=== PATIENT | male | born 1940 | race Caucasian/White ===

== ENCOUNTER → 2021-02-25 | Outpatient (CLI) | payer MEDICARE ==
[~2021-02-25] MED LIST: ASPIRIN CHEWABL81 MG PO; DECADRON6 MG PO; DIOVAN320 MG PO; FLOMAX0.4 MG PO; FLONASE 0.05% N16 GM; GLUCOPHAGE1000 MG PO; JANUVIA100 MG PO; LASIX20 MG PO; LIPITOR40 MG PO; PRESERVISION A1 EAC2 PO; TYLENOL EXTRA500 MG PO; UROCIT-K5 MEQ PO; VENTOLIN HFA 66.7 GM INH
== END ==
LOC: KOH-I 15:00
DX: N50.89 Other specified disorders of the male genital organs (principal)
CPT/HCPCS: 76870

== ENCOUNTER 2021-03-25 09:43 | Inpatient (IN) | payer OTHER ==
[~2021-03-25] VITALS: Ht 180.3 cm; Wt 111.1 kg
[~2021-03-25 09:43] MED LIST changes: -DECADRON6 MG PO; -DIOVAN320 MG PO; -FLOMAX0.4 MG PO; -FLONASE 0.05% N16 GM; -JANUVIA100 MG PO; -LIPITOR40 MG PO; -PRESERVISION A1 EAC2 PO; -TYLENOL EXTRA500 MG PO; -UROCIT-K5 MEQ PO; -VENTOLIN HFA 66.7 GM INH
[2021-03-25 10:13] LABS: HEMOGLOBIN 11.5 gm/dl (14.0-17.5); RED BLOOD COUNT 3.55 M/UL (4.20-5.50); WHITE BLOOD COUNT 7.3 K/UL (4.5-11.0)
[2021-03-25 10:37] LABS: BUN/CREATININE RATIO 25 (0-10)
[2021-03-25] MEDS ORDERED: JANUVIA100 MG PO (14:51)
[2021-03-25] MEDS ORDERED: TYLENOL EXTRA500 MG PO (15:12)
[2021-03-25] MEDS ORDERED: PRESERVISION A1 EAC2 PO (15:12)
[2021-03-25] MEDS ORDERED: FLOMAX0.4 MG PO (22:10)
[2021-03-25] MEDS ORDERED: LIPITOR40 MG PO (22:10)
[2021-03-25] MEDS ORDERED: UROCIT-K5 MEQ PO (22:12)
[2021-03-25] MEDS ORDERED: FLONASE 0.05% N16 GM (22:14)
[2021-03-25] MEDS ORDERED: DIOVAN320 MG PO (22:14)
[2021-03-26 04:31] LABS: HEMOGLOBIN 10.6 gm/dl (14.0-17.5); RED BLOOD COUNT 3.33 M/UL (4.20-5.50); WHITE BLOOD COUNT 5.7 K/UL (4.5-11.0)
[2021-03-27 04:36] LABS: HEMOGLOBIN 10.6 gm/dl (14.0-17.5); RED BLOOD COUNT 3.37 M/UL (4.20-5.50)
[2021-03-27 04:37] LABS: WHITE BLOOD COUNT 7.4 K/UL (4.5-11.0)
[2021-03-28 05:56] LABS: HEMOGLOBIN 11.1 gm/dl (14.0-17.5); RED BLOOD COUNT 3.5 M/UL (4.20-5.50); WHITE BLOOD COUNT 6.2 K/UL (4.5-11.0)
[2021-03-28 06:31] LABS: BUN/CREATININE RATIO 33 (0-10)
[2021-03-28] MEDS ORDERED: DECADRON6 MG PO (09:38)
[2021-03-28] MEDS ORDERED: VENTOLIN HFA 66.7 GM INH (09:38)
== END 2021-03-28 14:03 | disposition home or self-care (01) | DRG 177 ==
LOC: ER1 09:43 → CDU 14:24 → MED SURG 4 14:24
PROVIDERS: Physician Assistant Medical; Student in an Organized Health Care Education/Training Program; ADMIT Internal Medicine Infectious Disease
PROC: 8E0ZXY6 Isolation (ICD-10-PCS; principal; 2021-03-25)
PROC: 3E0333Z Introduction of Anti-inflammatory into Peripheral Vein, Percutaneous Approach (ICD-10-PCS; 2021-03-25)
DX: U07.1 COVID-19 (principal); J12.82 Pneumonia due to coronavirus disease 2019; J96.01 Acute respiratory failure with hypoxia; N17.0 Acute kidney failure with tubular necrosis; N18.30 Chronic kidney disease, stage 3 unspecified; I12.9 Hypertensive chronic kidney disease with stage 1 through stage 4 chronic kidney disease, or unspecified chronic kidney disease; E11.65 Type 2 diabetes mellitus with hyperglycemia; E11.22 Type 2 diabetes mellitus with diabetic chronic kidney disease; R68.0 Hypothermia, not associated with low environmental temperature; I45.10 Unspecified right bundle-branch block; T38.0X5A Adverse effect of glucocorticoids and synthetic analogues, initial encounter; Z79.4 Long term (current) use of insulin; Z83.3 Family history of diabetes mellitus
CPT/HCPCS: 36415; 36600; 71045; 80048; 80053; 80202; 82550; 82553; 82803; 82962; 83605; 83690; 83735; 83874; 83880; 84100; 84443; 84484; 85025; 85027; 85379; 86140; 87040; 87081; 93005; 94640; 94664; 94760; 96374; 96375; 99285; J0692; J1100; J1650; J3370; J7030; J7070; Q9967; U0002

== ENCOUNTER → 2021-05-24 | Outpatient (CLI) | payer OTHER ==
[~2021-05-24] MED LIST changes: +DECADRON6 MG PO; +DIOVAN320 MG PO; +FLOMAX0.4 MG PO; +FLONASE 0.05% N16 GM; +JANUVIA100 MG PO; +LIPITOR40 MG PO; +PRESERVISION A1 EAC2 PO; +TYLENOL EXTRA500 MG PO; +UROCIT-K5 MEQ PO; +VENTOLIN HFA 66.7 GM INH
== END ==
LOC: KOH-I 12:41
DX: M54.2 Cervicalgia (principal); M47.812 Spondylosis without myelopathy or radiculopathy, cervical region
CPT/HCPCS: 72040

== ENCOUNTER → 2022-04-24 | Outpatient (CLI) | payer OTHER | LOC: KOH-I 11:13 | DX: M47.26 Other spondylosis with radiculopathy, lumbar region (principal) | CPT/HCPCS: 72100; 73502 ==

== ENCOUNTER → 2022-04-28 | Outpatient (CLI) | payer OTHER | LOC: KOH-I 08:40 | DX: R31.29 Other microscopic hematuria (principal); N20.0 Calculus of kidney; K29.80 Duodenitis without bleeding | CPT/HCPCS: 74176 ==